=== PATIENT | male | born 1965 | race Caucasian/White ===

== ENCOUNTER 2016-12-10 12:51 | Day surgery (SDC) | payer MEDICAID ==
[~2016-12-10] VITALS: Ht 185.4 cm; Wt 76.3 kg
[2016-12-10 13:19] VITALS: BP 123/80
[2016-12-10 13:34] VITALS: BP 123/80
[2016-12-10] MEDS ORDERED: MIDAZOLAM 1 MG/ML, 2ML ONE (13:39)
[2016-12-10] MEDS ORDERED: FENTANYL PF 250 MCG/5ML ONE (13:39)
[2016-12-10] MEDS ORDERED: OXYC1TAB7 PO (14:13)
[2016-12-10] MEDS ORDERED: INDO50CA PO (14:13)
[2016-12-10] MEDS ORDERED: SUCCINYLCHOLINE 20 MG/ML, 10ML ONE (15:10)
[2016-12-10] MEDS ORDERED: ONDANSETRON 2MG/ML, 2ML ONE (15:10)
[2016-12-10] MEDS ORDERED: CEFAZOLIN 1,000 MG ONE (15:10)
[2016-12-10] MEDS ORDERED: PROPOFOL 10 MG/ML, 20ML ONE (15:10)
[2016-12-10] MEDS ORDERED: DEXAMETHASONE 4 MG/ML, 1ML ONE (15:10)
[2016-12-10] MEDS ORDERED: ROCURONIUM 10 MG/ML ONE (15:10)
[2016-12-10] MEDS ORDERED: OXYcodone 5 MG/5 ML ORAL.SOL UDC PO PRN (16:00)
[2016-12-10] MEDS ORDERED: hydrALAzine 20 MG/ML, 1ML IV PRN (16:00)
[2016-12-10] MEDS ORDERED: HYDROmorphone 1 MG/ML, 1ML IV PRN (16:00)
[2016-12-10] MEDS ORDERED: LABETALOL 5MG/ML, 20ML IV PRN (16:00)
[2016-12-10] MEDS ORDERED: FENTANYL PF 100 MCG/2ML IV PRN (16:00)
[2016-12-10] MEDS ORDERED: METOCLOPRAMIDE 5 MG/ML, 2ML IV PRN (16:00)
[2016-12-10] MEDS ORDERED: ONDANSETRON 2MG/ML, 2ML IVPush PRN (16:00)
[2016-12-10] MEDS ORDERED: ACETAMINOPHEN 325 MG TABLET PO PRN (16:00)
[2016-12-10] MEDS ORDERED: ONDANSETRON 2MG/ML, 2ML IV PRN (18:30)
[2016-12-10] MEDS ORDERED: OXYcodone/APAP 5/325MG TABLET PO PRN (18:30)
[2016-12-10] MEDS ORDERED: morphine SULFATE 10 MG/ML, 1ML IV PRN (19:00)
[2016-12-10] MEDS ORDERED: OXYC5CAP4 PO (20:08)
== END 2016-12-10 21:45 | disposition home or self-care (01) ==
LOC: OR 12:51 → 4NOR 13:11 → OR 21:45
PROVIDERS: ATTEND Orthopaedic Surgery
DX: S52.031A Displaced fracture of olecranon process with intraarticular extension of right ulna, initial encounter for closed fracture (principal); F17.210 Nicotine dependence, cigarettes, uncomplicated; M10.9 Gout, unspecified; X58.XXXA Exposure to other specified factors, initial encounter; Y93.89 Activity, other specified; Y92.89 Other specified places as the place of occurrence of the external cause; Y99.8 Other external cause status
CPT/HCPCS: 24685; 73070; 76000; 93005; C1713; J0330; J0690; J1100; J2250; J2405; J2704; J3010; 76001